=== PATIENT | male | born 1980 | race Caucasian/White ===

== ENCOUNTER 2023-08-25 20:01 | Emergency (ER) | payer OTHER ==
[~2023-08-25] VITALS: Ht 193 cm; Wt 104.8 kg
[2023-08-25 20:21] LABS: MCV 95.9 fl (81-99); RDW 12.7 (10.5-15.0)
[2023-08-25 20:23] LABS: BASOPHILS 0.2 % (0-2); EOSINOPHILS 0.6 % (0-6); HEMATOCRIT 45.7 % (35.0-50.0); HEMOGLOBIN 15.5 g/dL (12.0-18.0); LYMPHOCYTES 10.9 % (24-44); MCH 32.4 (27-36); MCHC 33.8 g/dl (30-36); MONOCYTES 5.7 % (0-12); NEUTROPHILS 82.6 % (39-80); PLATELET COUNT 196 K/uL (140-440); RBC 4.77 M/ul (4.3-5.7)
[2023-08-25] MEDS ORDERED: SODIUM CHLORIDE 0.9% 1,000 ML IV SCH (20:30)
[2023-08-25 20:37] LABS: ALBUMIN 4.3 g/dL (3.4-5.0); ALBUMIN/GLOBULIN RATIO 1.3 (1.1-2.4); ANION GAP 19.3 (7-21); BILIRUBIN, TOTAL 1.4 ng/dL (0.2-1.0); BUN/CREATININE RATIO 15.87 (6.0-28.6); CALCIUM 8.9 mg/dL (8.5-10.1); CREATININE, SERUM 1.26 mg/dL (0.70-1.30); POTASSIUM 4.3 mmol/L (3.5-5.1); PROTEIN, TOTAL 7.6 g/dL (6.4-8.2)
[2023-08-25 21:05] VITALS: BP 115/69
--- NOTE | 2023-08-26 22:51 | EKG ---
[facility] [address] [facility] [address] [place] [address] Signed Normal sinus rhythm Normal ECG No previous ECGs available Confirmed by Angela Greene MD () on 08/26/2023 10:51:10 PM Electronically Signed By: ANGELA GREENE MD 08/26/23 225 PATIENT NAME: CHARO ELIAS Electrocardiogram DATE OF : 84 PHYSICIAN: ANGELA GREENE MD REPORT #: [id number] REPORT IS CONFIDENTIAL AND NOT TO BE RELEASED WITHOUT AUTHORIZATION
== END 2023-08-25 21:06 | disposition home or self-care (01) ==
LOC: ED 20:01
PROVIDERS: Emergency Medicine
DX: R00.2 Palpitations (principal)
CPT/HCPCS: 36415; 71045; 80053; 83735; 84484; 85025; 93005; 93010; 99285-25; J7030